=== PATIENT | male | born 1955 | race Caucasian/White ===

== ENCOUNTER 2025-01-14 06:24 | Day surgery (SDC) | payer OTHER, SELFPAY | END 2025-01-14 12:50 | disposition home or self-care (01) | LOC: GI 06:24 | PROVIDERS: ATTENDING PHYSICIAN Internal Medicine | DX: Z12.11 Encounter for screening for malignant neoplasm of colon (principal); K57.30 Diverticulosis of large intestine without perforation or abscess without bleeding; K64.9 Unspecified hemorrhoids; Z86.0101 Personal history of adenomatous and serrated colon polyps | CPT/HCPCS: G0105 ==